=== PATIENT | female | born 1970 | race Two or more races ===

== ENCOUNTER → 2021-02-18 | Outpatient (CLI) | payer BC | LOC: WCC 10:32 | PROVIDERS: ATTEND Family Medicine Adult Medicine | DX: E11.65 Type 2 diabetes mellitus with hyperglycemia (principal); T21.02XA Burn of unspecified degree of abdominal wall, initial encounter; T22.011A Burn of unspecified degree of right forearm, initial encounter; T24.011A Burn of unspecified degree of right thigh, initial encounter; T24.031A Burn of unspecified degree of right lower leg, initial encounter; W40.8XXA Explosion of other specified explosive materials, initial encounter; L91.0 Hypertrophic scar; Z94.5 Skin transplant status; I10 Essential (primary) hypertension; E78.5 Hyperlipidemia, unspecified | CPT/HCPCS: 36415; 82948 ==